=== PATIENT | female | born 1965 | race Two or more races ===

== ENCOUNTER 2024-10-07 13:27 | Emergency (ER) | payer MEDICAID, OTHER ==
[~2024-10-07] VITALS: Ht 162.6 cm; Wt 73.4 kg
--- NOTE | 2024-10-07 14:46 | ED.PDOC ---
HPI Allergic reaction HPI Comments 59 y/o F, presents to the ED for CC of rash. Patient reports, using a new face lotion and having reaction, leading to a scaly like rash on her chin and cheeks. Patient has visible flakey skin to facial area. Patient denies fever, shortness of breath, difficulty swallowing, or changes in vision. No other symptoms or modifying factors present at this time. Chief Complaint: Rash Time Seen by MD: 14:30 Primary Care Provider: Dr. Juanito Taylor Reviewed Notes: Nurses Notes, Medications, Allergies Allergies: Coded Allergies: NO KNOWN ALLERGIES (Unverified , 10/07/24) Home Meds Active Scripts Triamcinolone Acetonide (Triamcinolone Acetonide) 0.1 % Cre, 0.1 % EX BID for 20 Days, #30 CRE Prov:KB WALDRON MD 10/07/24 Doxycycline Hyclate (Vibramycin) 100 Mg Cap, 1 CAP PO BID for 10 Days, #20 CAP Prov:KB WALDRON MD 10/07/24 Information Source: Patient Mode of Arrival: Ambulatory Severity: Moderate Rash: Moderate SOB: None Difficulty swallowing: None Pruritus: None Timing: Minutes Duration: Since onset Prehospital treatment: None Location: Face Exposed to: Cosmetic Developed: Rash History of: None Modyifying Factors: None Associated Sign and Symptoms: None Past Medical History PAST MEDICAL HISTORY: Denies Surgical History: Denies all surgeries SURGERY SCHEDULER History: Denies all SURGERY SCHEDULER Hx Family History Family History: Unknown Social History Smoker: Non-Smoker Alcohol: Denies ETOH Use Drugs: Denies Drug Use Lives In: Home Constitutional: denies: chills, diaphoresis, fatigue, fever, malaise, sweats, weakness, others EENTM: denies: blurred vision, double vision, ear bleeding, ear discharge, ear drainage, ear pain, ear ringing, eye pain, eye redness, hearing loss, mouth pain, mouth swelling, nasal discharge, nose bleeding, nose congestion, nose pain, photophobia, tearing, throat pain, throat swelling, voice changes, others Respiratory: denies: cough, hemoptysis, orthopnea, SOB at rest, shortness of breath, SOB with excertion, stridor, wheezing, others Cardiovascular: denies: chest pain, dizzy spells, diaphoresis, Dyspnea on exertion, edema, irregular heart beat, left arm pain, lightheadedness, palpitations, PND, syncope, others Gastrointestinal: denies: abdomen distended, abdominal pain, blood streaked bowels, constipated, diarrhea, dysphagia, difficulty swallowing, hematemesis, m shaina, nausea, poor appetite, poor fluid intake, rectal bleeding, rectal pain, vomiting, others Genitourinary: denies: abnormal vagina bleeding, burning, dyspareunia, dysuria, flank pain, frequency, hematuria, incontinence, pain, , vagina discharge, urgency, others Neurological: denies: dizziness, fainting, headache, left sided numbness, left sided weakness, numbness, paresthesia, pre-existing deficit, right sided numbness, right sided weakness, seizure, speech problems, tingling, tremors, weakness, others Musculoskeletal: denies: back pain, gout, joint pain, joint swelling, muscle pain, muscle stiffness, neck pain, others Integumetry: reports: rash; denies: bruises, change in color, change in hair/nails, dryness, laceration, lesions, lumps, wounds, others Allergic/Immunocompromised: denies: Difficulty Healing, Frequent Infections, Hives, Itching, others Hematologic/Lymphatic: denies: anemia, blood clots, easy bleeding, easy bruising, swollen glands, others Endocrine: denies: excessive hunger, excessive sweating, excessive thirst, excessive urination, flushing, intolerance to cold, intolerance to heat, unexplained weight gain, unexplained weight loss, others Psychiatric: denies: anxiety, bipolar disorder, depression, hopeless, panic disorder, schizophrenia, sleepless, suicidal, others All Other Systems: Reviewed and Negative Physical Exam General Appearance: No Apparent Distress HEENT: Normal ENT Inspection, PERRL/EOMI Neck: Full Range of Motion, Non-Tender, Normal, Normal Inspection Respiratory: Chest Non-Tender, Lungs Clear, No Accessory Muscle Use, No Respiratory Distress, Normal Breath Sounds Cardiovascular: No Edema, No JVD, No Murmur, No Gallop, Normal Peripheral P ulses, Regular Rate/Rhythm Breast Exam: Deferred Gastrointestinal: Abnormal Bowel Sounds Genitalia: Deferred Pelvic: Deferred Rectal: Deferred Extremities: No calf tenderness, Normal capillary refill, Normal inspection, Normal range of motion, Non-tender, No pedal edema Neurologic: Alert, 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 Was a procedure done?: No Differential diagnosis (all) Differential Diagnosis: Contact Dermatitis, Drug Reaction, Other (Perleche) X-Ray, Labs, Meds, VS Vital Signs Date Time Temp Pulse Resp B/P (MAP) Pulse Ox O2 Delivery O2 Flow Rate FiO2 10/07/24 15:14 98.1 90 18 135/87 (103) 97 98.1 10/07/24 15:14 90 18 98 Room Air 10/07/24 13:43 98.7 102 16 160/94 (116) 97 98.7 X-Ray, Labs, Meds, VS Comment Course in the emergency department eventful Patient has reaction to product she uses on her face presents with a dermatitis Patient will be treated and discharged home Time of 1ST Reevaluation: 15:00 Reevaluation 1ST: Unchanged Time of 2ND Reevaluation: 15:08 Reevaluation 2ND: Unchanged Consultation: PCP Patient Education/Counseling: Diagnosis, Treatment, Prognosis, Need For Follow Up Family Education/Counseling: Diagnosis, Treatment, Prognosis, Need For Follow Up, No Family Present SEPSIS Sepsis Screen Date sepsis recognized/suspect: Oct 07, 2024 Time Sepsis recognized/suspect: 1343 Recent Procedure: No On Antibiotic Therapy: No Respiratory Rate >20: No Heart Rate >90: Yes Temp<36 C (96.8 F) or >38.3 C: No SBP <90 or MAP <65 mmHG: No New Acute Mental Status Change: No Is the patient on CPAP, BIPAP,: No Vital Signs Date Time Temp Pulse Resp B/P (MAP) Pulse Ox O2 Delivery O2 Flow Rate FiO2 10/07/24 15:14 98.1 90 18 135/87 (103) 97 98.1 10/07/24 15:14 90 18 98 Room Air 10/07/24 13:43 98.7 102 16 160/94 (116) 97 98.7 Departure 1 Departure Time of Disposition: 15:08 Impression: Primary Impression: Dermatitis due to cosmetics Disposition: 01 HOME / SELF CARE / HOMELESS Condition: Fair Additional Instructions: Cleaned with soap and water and apply the ointment e-Prescriptions Triamcinolone Acetonide (Triamcinolone Acetonide) 0.1 % Cre 0.1 % EX BID for 20 Days, #30 CRE Prov: KB WALDRON MD 10/07/24 Doxycycline Hyclate (Vibramycin) 100 Mg Cap 1 CAP PO BID for 10 Days, #20 CAP Prov: KB WALDRON MD 10/07/24 Discharged With: Self Critical Care Note Critical Care Time?: No Stability Stability form required: No Heart Score Heart Score: Heart Score Response (Comments) Value History N/A 0 EKG N/A 0 Age 45-64 1 Risk Factors No known risk factors 0 Troponin N/A 0 Total 1 I personally scribed for KB WALDRON MD ([email or web address]) on 10/07/24 at 14:46. Electronically submitted by Alix Harrington [email or web address]). KB WALDRON MD Oct 07, 2024 14:46
[2024-10-07] MEDS ORDERED: TRIO1TP EX (15:02)
[2024-10-07] MEDS ORDERED: DOXY100C PO (15:02)
[2024-10-07 15:14] VITALS: BP 135/87; PULSE 90; RESP 18; TEMP 98.1; O2SAT 98
== END 2024-10-07 15:21 | disposition home or self-care (01) ==
LOC: ER 13:27
DX: L25.0 Unspecified contact dermatitis due to cosmetics (principal); Z79.899 Other long term (current) drug therapy

== ENCOUNTER 2024-11-03 16:57 | Emergency (ER) | payer MEDICAID ==
[~2024-11-03] VITALS: Ht 160 cm; Wt 80.0 kg
[~2024-11-03 16:57] MED LIST: DOXY100C PO; TRIO1TP EX
[2024-11-03 17:02] VITALS: BP 109/70; PULSE 110; RESP 20; TEMP 98.6; O2SAT 96
--- NOTE | 2024-11-03 17:34 | ED.PDOC ---
Back pain HPI HPI Comments 59 y/o F, presents to the ED for CC of back pain. Patient states, she has been experiencing sudden onset right hip and right leg pain x7days. Patient denies strenuous activity, lifting, bending, trauma, injury, or fall. No other symptoms or modifying factors present at this time. Chief Complaint: Back Pain Time Seen by MD: 17:30 Primary Care Provider: Dr. Juanito Taylor Reviewed Notes: Nurses Notes, Medications, Allergies Allergies: Coded Allergies: NO KNOWN ALLERGIES (Unverified , 10/07/24) Home Meds Active Scripts Triamcinolone Acetonide (Triamcinolone Acetonide) 0.1 % Cre, 0.1 % EX BID for 20 Days, #30 CRE Prov:KB WALDRON MD 10/07/24 Doxycycline Hyclate (Vibramycin) 100 Mg Cap, 1 CAP PO BID for 10 Days, #20 CAP Prov:KB WALDRON MD 10/07/24 Information Source: Patient Mode of Arrival: Ambulatory Timing: Days Duration: Since onset Location of Back pain: (R) Lumbar Severity: Moderate Prehospital treatment: None Onset: Spontaneous History of: None Modifying Factors: Nothing Associated signs and symptoms: None Past Medical History PAST MEDICAL HISTORY: Denies Surgical History: Denies all surgeries FIBRE CEMENT MOULDER History: Denies all FIBRE CEMENT MOULDER Hx Family History Family History: Unknown Social History Smoker: Non-Smoker Alcohol: Denies ETOH Use Drugs: Denies Drug Use Lives In: Home Constitutional: denies: chills, diaphoresis, fatigue, fever, malaise, sweats, weakness, others EENTM: denies: blurred vision, double vision, ear bleeding, ear discharge, ear drainage, ear pain, ear ringing, eye pain, eye redness, hearing loss, mouth pain, mouth swelling, nasal discharge, nose bleeding, nose congestion, nose pain, photophobia, tearing, throat pain, throat swelling, voice changes, others Respiratory: denies: cough, hemoptysis, orthopnea, SOB at rest, shortness of breath, SOB with excertion, stridor, wheezing, others Cardiovascular: denies: chest pain, dizzy spells, diaphoresis, Dyspnea on exertion, edema, irregular heart beat, left arm pain, lightheadedness, palpitations, PND, syncope, others Gastrointestinal: denies: abdomen distended, abdominal pain, blood streaked bowels, constipated, diarrhea, dysphagia, difficulty swallowing, hematemesis, melena, nausea, poor appetite, poor fluid intake, rectal bleeding, rectal pain, vomiting, others Genitourinary: denies: abnormal vagina bleeding, burning, dyspareunia, dysuria, flank pain, frequency, hematuria, incontinence, pain, , vagina discharg e, urgency, others Neurological: denies: dizziness, fainting, headache, left sided numbness, left sided weakness, numbness, paresthesia, pre-existing deficit, right sided numbness, right sided weakness, seizure, speech problems, tingling, tremors, weakness, others Musculoskeletal: reports: others (right leg and right hip pain); denies: back pain, gout, joint pain, joint swelling, muscle pain, muscle stiffness, neck pain Integumetry: denies: bruises, change in color, change in hair/nails, dryness, laceration, lesions, lumps, rash, wounds, others Allergic/Immunocompromised: denies: Difficulty Healing, Frequent Infections, Hives, Itching, others Hematologic/Lymphatic: denies: anemia, blood clots, easy bleeding, easy bruising, swollen glands, others Endocrine: denies: excessive hunger, excessive sweating, excessive thirst, excessive urination, flushing, intolerance to cold, intolerance to heat, unexplained weight gain, unexplained weight loss, others Psychiatric: denies: anxiety, bipolar disorder, depression, hopeless, panic disorder, schizophrenia, sleepless, suicidal, others All Other Systems: Reviewed and Negative Physical Exam General Appearance: No Apparent Distress, Normal HEENT: Normal ENT Inspection, Pharynx Normal Neck: Full Range of Motion, Non-Tender, Normal, Normal Inspection Respiratory: Chest Non-Tender, Lungs Clear, No Accessory Muscle Use, No Respiratory Distress, Normal Breath Sounds Cardiovascular: No Edema, No Murmur, No Gallop, Normal Peripheral Pulses, Regular Rate/Rhythm Breast Exam: Deferred Gastrointestinal: No Organomegaly, Non Tender, No Pulsatile Mass, Normal Bowel Sounds, Soft Genitalia: Deferred Pelvic: Deferred Rectal: Deferred Extremities: No calf tenderness, Normal capillary refill, Normal inspection, Normal range of motion, Non-tender, No pedal edema Musculoskeletal : Location: Right Extremity Location: Hip, Leg Apperance: Tenderness Neurologic: Alert, 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 Was a procedure done?: No Back Pain Differential Dx Differential Diagnosis: Musculoskeletal Pain, Strain, Other (sciatica pain) X-Ray, Labs, Meds, VS Vital Signs Date Time Temp Pulse Resp B/P (MAP) Pulse Ox O2 Delivery O2 Flow Rate FiO2 11/03/24 17:02 98.6 110 20 109/70 96 98.6 X-Ray, Labs, Meds, VS Comment Imaging: X-rays and CT scans were reviewed and interpreted by this provider, imaging shows no fractures and no pathological disease. Pending radiology review. Laboratory: Labs reviewed and interpreted by this provider. No significant abnormalities noted. Patient has prior medical visits reviewed. Med reconciliation performed Vital signs reviewed Time of 1ST Reevaluation: 18:00 Reevaluation 1ST: Unchanged Patient Education/Counseling: Diagnosis, Treatment, Need For Follow Up (Follow up with the PCP in next available appointment. Return to the emergency department if symptoms worsen.) Family Education/Counseling: No Family Present SEPSIS Sepsis Screen Date sepsis recognized/suspect: Nov 03, 2024 Time Sepsis recognized/suspect: 1701 Recent Procedure: No On Antibiotic Therapy: No Respiratory Rate >20: No Heart Rate >90: Yes Temp<36 C (96.8 F) or >38.3 C: No SBP <90 or MAP <65 mmHG: No New Acute Mental Status Change: No Is the patient on CPAP, BIPAP,: No Physician Orders R Hip Complete Xray (11/03/24 17:17) Methylprednisolone Sod Succ (Solu Medrol (11/03/24 18:15) Ketorolac Injection (Toradol Injection) (11/03/24 18:15) Vital Signs Date Time Temp Pulse Resp B/P (MAP) Pulse Ox O2 Delivery O2 Flow Rate FiO2 11/03/24 17:02 98.6 110 20 109/70 96 98.6 Departure 1 Departure Time of Disposition: 18:05 Impression: Primary Impression: Lumbar radiculopathy Disposition: HOME / SELF CARE / HOMELESS Condition: Fair e-Prescriptions Cyclobenzaprine Hcl (Cyclobenzaprine Hcl) 5 Mg Tab 1 TAB PO TID PRN, #30 TAB Prov: FLORES,CHRISTOPHER E GAS CUTTING MACHINE OPERATOR 11/03/24 Discharged With: Self Critical Care Note Critical Care Time?: No Stability Stability form required: No Heart Score Heart Score: Heart Score Response (Comments) Value History N/A 0 EKG N/A 0 Age N/A 0 Risk Factors N/A 0 Troponin N/A 0 Total 0 I personally scribed for JARON FLORES GAS CUTTING MACHINE OPERATOR ([email or web address]) on 11/03/24 at 17:34. Electronically submitted by Alix Harrington ([email or web address]). I personally scribed for JARON FLORES GAS CUTTING MACHINE OPERATOR ([email or web address]) on 11/03/24 at 17:41. Electronically submitted by Alix Harrington ([email or web address]). JARON FLORES GAS CUTTING MACHINE OPERATOR Nov 03, 2024 17:34
--- NOTE | 2024-11-03 17:55 | DVH ---
CLINICAL INDICATION: hip pain TECHNIQUE: 3 radiographic views of the right hip were obtained. Comparison: None FINDINGS/IMPRESSION: There is no evidence of acute fracture or dislocation. The visualized joint space is well maintained. 1.1 cm calcification within the left gluteal soft tissues which may represent an injection granuloma versus nonspecific soft tissue calcification. Moderate to large amount of fecal material within the visualized colon.
[2024-11-03] MEDS ORDERED: CYCL-837 PO (18:05)
[2024-11-03] MEDS ORDERED: KETOROLAC TROMETH 30 MG/ML 1ML VIAL IM ONE (18:15)
[2024-11-03] MEDS ORDERED: methylPREDNISolone SOD SUCC 125 MG/2 ML VL IM ONE (18:15)
== END 2024-11-03 23:13 | disposition home or self-care (01) ==
LOC: ER 16:57
DX: M54.16 Radiculopathy, lumbar region (principal)
CPT/HCPCS: 73502